=== PATIENT | male | born 1980 | race Caucasian/White ===

== ENCOUNTER → 2018-08-21 | Outpatient (CLI) | payer BC ==
--- NOTE | 2018-08-21 17:55 | Diagnostic Imaging Report ---
INDICATION: Left rib pain. EXAMINATION: PA chest and three views of the left ribs were obtained. FINDINGS: There are no displaced rib fractures. There is no effusion or pneumothorax. Lungs are clear. IMPRESSION: Negative chest and left ribs. Dictated by: Dictated on workstation # [id number]
== END ==
LOC: RAD 17:33
PROVIDERS: ATTEND Nurse Practitioner Family
DX: S29.8XXA Other specified injuries of thorax, initial encounter (principal)
CPT/HCPCS: 71101

== ENCOUNTER → 2021-02-05 | Outpatient (REF) ==
--- NOTE | 2021-02-05 13:32 | Diagnostic Imaging Report ---
INDICATION: Knee pain. 3 views of the right knee were obtained. FINDINGS: The alignment is normal. There is no fracture or dislocation. Soft tissues are unremarkable. IMPRESSION: No acute fracture or dislocation. Dictated by: Dictated on workstation # [id number]
== END ==
LOC: OCC 13:03
PROVIDERS: ATTEND Nurse Practitioner Family
DX: M25.561 Pain in right knee (principal)
CPT/HCPCS: 73562